=== PATIENT | male | born 1930 | race Caucasian/White ===

== ENCOUNTER 2021-03-02 11:18 | Outpatient (CLI) | payer MEDICARE ==
[2021-03-03 07:59] LABS: SARS-CoV-2 PCR by NAA Not Detected (NotDetected)
== END 2021-03-02 11:19 | disposition home or self-care (01) ==
LOC: CSHLAB 11:18
PROVIDERS: ATTEND Urology
DX: Z20.822 Contact with and (suspected) exposure to COVID-19 (principal); R33.8 Other retention of urine
CPT/HCPCS: U0003; U0005